=== PATIENT | male | born 1960 | race Hispanic/Latino ===

== ENCOUNTER 2018-02-06 08:45 | Emergency (ER) | payer OTHER ==
[~2018-02-06] VITALS: Ht 167.6 cm; Wt 88.5 kg
[~2018-02-06 08:45] MED LIST: CYCLOBENZAPRINE10 MG PO; ENALAPRIL MALEA20 MG PO; ENALAPRIL-HCTZ1 EACH PO; OMEPRAZOLE40 MG PO
[2018-02-06] MEDS ORDERED: NIFEDIPINE 10 MG CAP PO ONE (09:30)
[2018-02-06] MEDS ORDERED: NIFEDIPINE 10 MG CAP ONE (09:46)
[2018-02-06] MEDS ORDERED: NIFEDIPINE 10 MG CAP PO SCH (10:15)
== END 2018-02-06 10:55 | disposition home or self-care (01) ==
LOC: ER 08:50
DX: R50.9 Fever, unspecified (principal); J11.1 Influenza due to unidentified influenza virus with other respiratory manifestations; I10 Essential (primary) hypertension; Z91.14 Patient's other noncompliance with medication regimen
CPT/HCPCS: 87400; 99283

== ENCOUNTER 2018-04-22 15:41 | Emergency (ER) | payer OTHER ==
[~2018-04-22] VITALS: Ht 167.6 cm; Wt 88.5 kg
--- OUTSIDE RECORDS SUMMARY | 2018-04-22 15:43 | XMS REPORT | Clinical Summary ---
Author Author [facility] Organization [facility] Address Unknown Phone Unavailable Care Team Providers Care Master Sheet Clerk Name Role Phone Asked, Pcp PCP Unavailable Allergies No Known Allergies Current Medications Prescription Sig. Disp. Refills Start End Date Status Date clindamycin (CLEOCIN) 300 Take 1 capsule (300 mg 28 capsule 0 02/22/20 MG capsule total) by mouth 4 (four) 18 18 times a day for 7 days. acetaminophen-codeine Take 1-2 tablets by mouth 15 tablet 0 02/15/20 02/18/20 (TYLENOL WITH CODEINE #3) every 6 (six) hours as 18 18 300-30 mg per tablet needed for moderate pain for up to 3 days. ibuprofen (ADVIL,MOTRIN) Take 1 tablet (600 mg 30 tablet 0 02/15/20 03/16/20 600 MG tablet total) by mouth every 6 18 18 (six) hours as needed for mild pain for up to 30 days. Active Problems Not on file Encounters Date Type Specialty Care Team Description 02/14/2018 Emergency Emergency Medicine oCrnelio Deng MD Open fracture (Primary Cornelio Lynn MD Dx); Open nondisplaced fracture of distal phalanx of right middle finger, initial encounter after 04/21/2017 Social History Tobacco Use Types Packs/Day Years Used Date Never Smoker Smokeless Tobacco: Never Used Alcohol Use Drinks/Week oz/Week Comments No Sex Assigned at Date Recorded Not on file Last Filed Vital Signs Vital Sign Reading Time Taken Blood Pressure 169/97 02/14/2018 4:46 PM CDT Pulse 76 02/14/2018 4:46 PM CDT Temperature 36.8 C (98.3 F) 02/14/2018 4:46 PM CDT Respiratory Rate 16 02/14/2018 4:46 PM CDT Oxygen Saturation 98% 02/14/2018 4:46 PM CDT Inhaled Oxygen - - Concentration Weight - - Height - - Body Mass Index - - Plan of Treatment Health Maintenance Due Date Last Done Comments COLON CANCER SCREENING 2012 SHINGRIX VACCINE (#1) 2012 INFLUENZA VACCINE 2018 Procedures Procedure Name Priority Date/Time Associated Diagnosis Comments TERENCE HAGEN WND BODY Routine 02/14/2018 Results for this <2.5CM 2:40 PM CDT procedure are in the results section. after 04/21/2017 Results * XR Hand 3+ Vw Right (02/14/2018 3:15 PM) Specimen Performing Laboratory [facility] [address] [place] [address] Narrative EXAMINATION:XR HAND 3VW RIGHT CLINICAL HISTORY:crush injurylaceration COMPARISON:None. IMPRESSION: Comminuted fracture through the mid to distal third phalanx extends through the phalangeal tuft. No focal osseous lesion is seen. [facility]-[id number] Procedure Note Interface, Radiology Results Incoming - 02/14/2018 3:27 PM CDT EXAMINATION: XR HAND 3 VW RIGHT CLINICAL HISTORY: crush injury laceration COMPARISON: None. IMPRESSION: Comminuted fracture through the mid to distal third phalanx extends through the phalangeal tuft. No focal osseous lesion is seen. [facility]-[id number] * LACERATION REPAIR (02/14/2018 2:40 PM) Narrative Cornelio Deng MD 02/28/20182:08 PM Laceration Repair Performed by: JEAN CARLOS VILLARREAL Authorized by: CORNELIO DENG Consent: Consent obtained:Verbal Consent given by:Parent and patient Risks discussed:Infection, pain, retained foreign body, tendon damage, poor cosmetic result, need for additional repair, nerve damage, poor wound healing and vascular damage Alternatives discussed:Delayed treatment Anesthesia (see MAR for exact dosages): Anesthesia method:Topical application Topical anesthetic:LET Laceration details: Location:Finger Finger location:R long finger Length (cm):0.4 Repair type: Repair type:Simple Pre-procedure details: Preparation:Patient was prepped and draped in usual sterile fashion and imaging obtained to evaluate for foreign bodies Exploration: Hemostasis achieved with:LET Wound exploration: wound explored through full range of motion and entire depth of wound probed and visualized Wound extent: no foreign bodies/material noted, no muscle damage noted, no nerve damage noted, no tendon damage noted, no vascular damage noted and no amputation Contaminated: no Treatment: Area cleansed with:Betadine Amount of cleaning:Extensive Irrigation solution:Sterile water Irrigation volume:500 Irrigation method:Pressure wash Visualized foreign bodies/material removed: no Skin repair: Repair method:Sutures Suture size:4-0 Suture material:Prolene Suture technique:Simple interrupted Number of sutures:2 Approximation: Approximation:Close Post-procedure details: Dressing:Antibiotic ointment and splint for protection Patient tolerance of procedure:Tolerated well, no immediate complications after 04/21/2017 Insurance Payer Benefit Subscriber ID Type Phone Address Plan / Group COMMERCIAL MISC MISC xxxxxxxxx Commercial COMMERCIAL WORKERS COMP [facility] xxxxxxxxxx Workers WORKER'S Comp COMP Guarantor Name Account Relation to Date of Phone Billing Address Type Patient [id number] Workers Self 1960 Home: [address] [place] [address]
--- OUTSIDE RECORDS SUMMARY | 2018-04-22 15:43 | XMS REPORT | Continuity of Care Document ---
Author Author [facility] Organization [facility] Address [address] [place] [address] Phone Unavailable Care Team Providers Care Corporate Pilot Name Role Phone NONSTAFF PCP Unavailable Insurance Providers Guarantor Tad Gomez Address [address] [place] [address] Email none [facility] Policy Number [id number] Subscriber's Name Tad Gomez Relationship 18 Self / Same As Patient Group Number [id number] Group Name [facility] Effective Date 03 Advance Directives Directive Response Recorded Date/Time Does the patient have an advance directive? No 09/23/16 1:08pm If yes, is advance directive on file with [facility]? No 09/23/16 1:08pm If not on file with [facility] will patient provide a copy? No 09/23/16 1:08pm Do you have a Directive to Physician? No 02/06/18 10:35am Do you have a Medical Power of Child Nutrition Director? No 02/06/18 10:35am Do you have an out of hospital Do Not Resuscitate Order? No 02/06/18 10:35am Do you have any special needs we should be aware of? No 02/06/18 10:35am Do you have a support person here with you today? Yes 02/06/18 10:35am Did patient receive Notice of Privacy Practices? Yes 02/06/18 10:36am Did patient receive patient rights and responsibilities? Yes 02/06/18 10:36am Problems No problem information available. Medications Current Home Medications Medication Dose Units Route Directions Days Qty Instructions Start Date Cyclobenzaprine Hcl 10 Mg Tablet 10 Mg Oral Bedtime Enalapril Maleate 20 Mg Tablet 10 Mg Oral Daily Enalapril/Hydrochlorothiazide (Enalapril-Hctz 10-25 Mg Tablet) 1 Each Tablet Oral Daily Omeprazole 40 Mg Capsule.dr 40 Mg Oral Daily Social History Smoking Status Start Date Stop Date Never Smoker Hospital Discharge Instructions No hospital discharge instruction information available. Plan of Care Discharge Date 02/06/18 10:55am Disposition HOME, SELF-CARE Condition at Discharge Stable Instructions/Education Provided Flu - Adult Hypertension Forms Provided Work/School Excuse Prescriptions See Medication Section Additional Instructions/Education FOLLOW UP WITH PCP TAKE MEDS DIRECTED MONITOR BLOOD PRESSURE FOR MD FOLLOW UP Functional Status No functional status information available. Allergies, Adverse Reactions, Alerts No known allergies. Immunizations No immunization information available. Vital Signs Acute Vital Signs Vital Response Date/Time Height 5 ft 6 in 02/06/2018 8:53am Weight 195 lb 02/06/2018 8:53am Body Mass Index 31.5 kg/m^2 02/06/2018 8:53am Results Laboratory Results Test Name Result Units Flags Reference Collection Date/Time Result Date/ Time Comments Influenza Virus Types A,B Antigen POSITIVE FLU B H NEGATIVE 02/06/2018 9:30am 02/06/2018 10:10am Results called to MARKY ASIF at 1009 on 02/06/18 by Renny Geiger. RB OK. Results called to NABIL GRIMM in infection control at 1009 on 02/06/18 by Renny Geiger. Procedures No procedure information available. Encounters Encounter Location Arrival/Admit Date Discharge/Depart Date Attending Provider Departed Emergency Room [facility] 02/06/18 8:50am 10:55am KRISTEN COPE MD
--- NOTE | 2018-04-22 18:32 | Diagnostic Imaging Report ---
PROCEDURE: CHEST SINGLE (PORTABLE) COMPARISON: None. INDICATIONS: DIZZINESS, LOSS OF HEARING FINDINGS: LUNGS: Subsegmental atelectasis along the minor fissure. No mass or infiltrate. PLEURA: No effusions or pneumothorax. HEART \T\ MEDIASTINUM: The heart is within normal size-limits. The aorta is ectatic. BONES \T\ SOFT TISSUES: Unremarkable. CONCLUSION: No acute thoracic abnormality. Subsegmental atelectasis as described above. Dictated by: Misa Loo M.D. on 04/22/2018 at 18:35 Electronically approved by: Misa Loo M.D. on 04/22/2018 at 18:35
[2018-04-22 18:36] LABS: BASOPHILS # (AUTO) 0.1 (0.0-0.1); BASOPHILS % 1.2 % (0.0-1.0); EOSINOPHILS # (AUTO) 0.2 (0.0-0.4); EOSINOPHILS % 1.8 % (0.0-6.0); HEMATOCRIT 49.6 % (38.2-49.6); HEMOGLOBIN 16.7 g/dL (14.0-18.0); LYMPHOCYTES % 33.6 % (18.0-39.1); MEAN CORPUSCULAR HEMOGLOBIN 29.7 pg (28-32); MEAN CORPUSCULAR HGB CONC 33.7 g/dL (31-35); MEAN CORPUSCULAR VOLUME 88.1 fL (81-99); MONOCYTES # (AUTO) 0.6 (0.2-0.8); MONOCYTES % 6.2 % (4.4-11.3); PLATELET COUNT 231 x10e3/uL (140-360); RED BLOOD COUNT 5.63 x10e6/uL (4.3-5.7); RED CELL DISTRIBUTION WIDTH 13.5 % (11.7-14.4)
[2018-04-22 19:50] LABS: BILIRUBIN,URINE NEGATIVE (NEGATIVE); CLARITY,URINE CLEAR (CLEAR); COLOR,URINE YELLOW (YELLOW); KETONES,URINE NEGATIVE (NEGATIVE); LEUKOCYTE ESTERASE ,URINE NEGATIVE (NEGATIVE); NITRITE,URINE NEGATIVE (NEGATIVE); PROTEIN,URINE DIPSTICK NEGATIVE (NEGATIVE); URINE UROBILINOGEN 0.2 mg/dL (0.2 - 1)
[2018-04-22 19:55] LABS: EPITHELIAL CELLS,URINE FEW /LPF; MUCUS,URINE RARE (RARE); RBC,URINE 0-5 /HPF (0-5); WBC,URINE (MAN) 0-5 /HPF (0-5)
--- NOTE | 2018-04-22 20:03 | Diagnostic Imaging Report ---
History: dizziness Comparison studies: None Technique: Axial images were obtained from the skull base to the vertex. Coronal and sagittal reconstructions obtained from the axial data. Findings: Scalp/skull: No abnormalities. No fractures, blastic or lytic lesions. Extra-axial spaces: No masses. No fluid collections. Brain sulci: Appropriate for age. Ventricles: Normal in size and configuration. No hydrocephalus. Parenchyma: No abnormal densities. No masses, hemorrhage, acute or chronic cortical vascular insults. Sellar/suprasellar region: No abnormalities Craniocervical junction: Patent foramen magnum. No Chiari one malformation. Mild atherosclerotic calcifications of the carotid siphons and distal vertebral arteries. IMPRESSION: No intracranial abnormalities. Findings discussed with Dr. Ndiaye at 6:47PM on 04/22/2018. A preliminary report was given by Neuroradiology fellow at 6:47 PM on 04/22/2018. I have reviewed the study and agree with the findings in the preliminary report. Signed by: Dr. Crystal Mahoney M.D. on 04/22/2018 7:59 PM
[2018-04-22 20:27] LABS: INR 1.08; PROTHROMBIN TIME 13.2 seconds (11.9-14.5)
[2018-04-22 20:28] LABS: PARTIAL THROMBOPLASTIN TIME 29.6 seconds (23.8-35.5)
[2018-04-22 20:36] LABS: ALANINE AMINOTRANSFERASE 46 IU/L (0-55); ALBUMIN 4.7 g/dL (3.5-5.0); ALBUMIN/GLOBULIN RATIO 1.2 (0.8-2.0); ALKALINE PHOSPHATASE 82 IU/L (40-150); ANION GAP 15.5 mmol/L (8-16); BLOOD UREA NITROGEN 11 mg/dL (7-26); BUN/CREATININE RATIO 9 (6-25); CALCIUM 10.8 mg/dL (8.4-10.2); CARBON DIOXIDE 26 mmol/L (22-29); CHLORIDE 98 mmol/L (98-107); CREATINE KINASE 142 IU/L (30-200); CREATININE, SERUM 1.17 mg/dL (0.72-1.25); EST GLOMERULAR FILTRATION RATE > 60 ML/MIN (60-); GLUCOSE 114 mg/dL (74-118); POTASSIUM 4.5 mmol/L (3.5-5.1); SODIUM 135 mmol/L (136-145)
[2018-04-22] MEDS ORDERED: MECLIZINE HCL12.5 MG PO (21:24)
[2018-04-22 21:25] VITALS: BP 145/99
== END 2018-04-22 21:30 | disposition home or self-care (01) ==
LOC: ER 15:41
DX: R42 Dizziness and giddiness (principal); H61.22 Impacted cerumen, left ear; I10 Essential (primary) hypertension
CPT/HCPCS: 36415; 70450; 71045; 80053; 81001; 82550; 82553; 84484; 85025; 85610; 85730; 93005; 99284